=== PATIENT | female | born 1950 | race Caucasian/White ===

== ENCOUNTER 2022-10-20 11:06 | Outpatient (REF) | payer MEDICARE, MEDICAID, SELFPAY ==
--- NOTE | ~2022-10-20 | XR_ITS ---
EXAMINATION: XR LUMBAR SPINE CLINICAL INFORMATION: Reason for Exam M54.40 - Lumbago with sciatica, unspecified side COMPARISON: None TECHNIQUE: Frontal lateral, flexion and extension, total of 4 views. FINDINGS: Five [id number] lumbar vertebrae were identified maintaining normal height, there is posterior fusion of L4-L5 with 2 rods and multiple screws, hardware is are intact. Mild grade 1 anterior spondylolisthesis of L3 on L4. This is seen with flexion. Narrowing of intervertebral disc spaces at all levels suggest underlying degenerative disc disease. Paravertebral soft tissues are unremarkable. There are radiolucencies, most likely superimposed bowel gas.. No radiographic evidence of osteolytic or osteoblastic lesions. XR/XR lumbar spine 4V min IMPRESSION: * Posterior fusion of lower lumbar spine, hardware is intact. * Narrowing of intervertebral disc spaces suggest underlying degenerative disc disease. * Mild anterior spondylolisthesis of L3 on L4 seen with flexion only, roughly 7 mm anterior shift.
== END 2022-10-20 11:07 | disposition home or self-care (01) ==
LOC: HO.HOSX 11:06
PROVIDERS: Visit Provider Physician Assistant
DX: M54.40 Lumbago with sciatica, unspecified side (principal); M54.2 Cervicalgia
CPT/HCPCS: 72110; 99212

== ENCOUNTER 2023-05-31 13:46 | Outpatient (AMB) | payer MEDICARE, MEDICAID, SELFPAY ==
--- NOTE | 2023-05-31 14:11 | A.SPINEOV_ITS ---
Intake Intake Visit Reasons: MRI f/u discuss possible sx Intake Note: Ms. Arita is here today to discuss the results of her MRI and possible surgical options. Tugboat Engineer Required: No Assessment & Plan Assessment & Plan (1) Neck pain: Code(s): M54.2 - Cervicalgia Plan Dear Dr. Morejon, Mrs arita comes back to the office today to discuss her neck pain. The last time I saw her back in September of last year she wished to discuss ongoing symptoms of claudicating leg pain. That seems to have subsided on its own, but the neck pain that we saw her for last year seems to have gotten worse. It is on the left side of the mid cervical area, and is associated with numbness along the back of her neck. She does not have any radicular symptoms. We sent her for C4-5 facet injection in the setting of significant facet inflammation seen on her MRI in April of [address] [facility]. She did get a response to t hat, but was not in favor of doing anything in terms of surgical intervention. With a numbness on the back of her neck she now seems a little more concerned. On exam she is uncomfortable with turning of her neck to the left. She has no focal motor deficits, no hyperreflexia. I reviewed all her imaging with her today. Her lumbar imaging that was done at [facility] September last year shows stenosis above the previous surgical site at L4-5. She has moderate to severe stenosis at L3-4 and moderate stenosis at L2-3. There was incidentally noted right adrenal adenoma. We reviewed the cervical MRI again, and the facet arthropathy at C4-5. Impression: 73-year-old with a previous history of an L4-5 interbody fusion, who has stenosis above her surgical site at the L3-4 and L2-3 area. At this time the claudicating leg pain that we discussed last year does not seem to be a main symptom so she would rather just continue to handle this with conservative treatment and tincture of time. There is an incidentally noted right adrenal adenoma. I told her I would send you a note about this for consideration of further workup. I will defer this to your judgment as to whether this is something that needs more imaging. With regard to her neck, her imaging is outdated so I will need a new cervical MRI and I will get flexion-extension studies to rule out any instability. I will see her back after the tests are completed. Total amount of time spent in this visit was 20 minutes in discussion of symptoms, lumbar and cervical imaging results and subsequent plan of care Gennaro Gruber MD,PhD [facility] Orders: Orders XR cervical spine 4V Today M54.2 - Cervicalgia MR cervical spine wo con Today M54.2 - Cervicalgia Coding Level of Care Code Est Pt Level 3 (59060) Diagnoses Neck pain M54.2
== END 2023-05-31 14:50 | disposition home or self-care (01) ==
PROVIDERS: PCP Internal Medicine; Visit Provider Physician Assistant
DX: M54.2 Cervicalgia (principal)
CPT/HCPCS: 99213

== ENCOUNTER 2023-05-31 13:46 | Outpatient (REF) | payer MEDICARE, MEDICAID, SELFPAY ==
--- NOTE | ~2023-05-31 | XR_ITS ---
EXAMINATION: XR cervical spine CLINICAL INFORMATION: Pain COMPARISON: None TECHNIQUE: 5 views of the cervical spine were obtained. FINDINGS: The cervical spine is visualized to the level of C6-C7 on the lateral view. 3 mm anterolisthesis of C4 and C5 and C5 on C6 seen in flexion which is neutral on extension views. Vertebral body heights are maintained. Lateral masses of C1 are well aligned on C2. Visualized portion of the dens is intact. Mild multilevel degenerative disc disease most pronounced at C6-C7 with loss of disc space height and multilevel facet arthropathy. No prevertebral soft tissue swelling. XR/XR cervical spine 4V IMPRESSION: 1. 3 mm anterolisthesis of C4 and C5 and C5 on C6 seen in flexion which is neutral on extension views. 2. Mild multilevel degenerative disc disease most pronounced at C5-C6.
== END 2023-05-31 13:47 | disposition home or self-care (01) ==
LOC: HO.HOSX 13:46
PROVIDERS: PCP Internal Medicine; Visit Provider Physician Assistant
DX: M54.2 Cervicalgia (principal)
CPT/HCPCS: 72050; 99212

== ENCOUNTER 2023-08-07 14:19 | Outpatient (AMB) | payer MEDICARE, MEDICAID, SELFPAY ==
--- NOTE | 2023-08-07 14:48 | A.SPINEOV_ITS ---
Intake Intake Visit Reasons: discuss MRI Intake Note: Ms. Arita is here today to discuss MRI. Ammonia Worker Required: No Assessment & Plan Assessment & Plan (1) Neck pain: Code(s): M54.2 - Cervicalgia Plan Mrs Arita returns today to review her cervical MRI. In terms of neck pain and that numbness feeling down the left side of her neck things seemed to be stable. Her MRI done at [facility] shows some degenerative arthritic changes with bulging discs but nothing compressing the spinal cord and nothing that would immediately require surgery unless she started to develop some kind of severe radicular symptoms or weakness. We discussed the general history of bulging discs and cervical spondylosis. She will call us if she starts to develop worsening symptoms. Total amount of time spent in this visit was 20 minutes in discussion of symptoms, cervical imaging results and subsequent plan of care Gennaro Gruber MD,PhD [facility] Coding Level of Care Code Est Pt Level 3 (54084) Diagnoses Neck pain M54.2
== END 2023-08-07 15:26 | disposition home or self-care (01) ==
PROVIDERS: PCP Internal Medicine; Visit Provider Physician Assistant
DX: M54.2 Cervicalgia (principal)
CPT/HCPCS: 99213

== ENCOUNTER → 2023-08-07 14:19 | Outpatient (BNVA) | payer MEDICARE, MEDICAID, SELFPAY | PROVIDERS: PCP Internal Medicine; Visit Provider Physician Assistant | DX: M54.2 Cervicalgia (principal) | CPT/HCPCS: 99212 ==